=== PATIENT | male | born 1965 | race Caucasian/White ===

== ENCOUNTER 2018-09-15 02:32 | Observation (INO) | payer OTHER ==
[2018-09-15] MEDS ORDERED: Nitroglycerin 2% Ointment 1 INCH/1 GM Packet ONE (03:09)
[2018-09-15 03:43] LABS: Troponin I Less than 0.010 ng/mL (< 0.028)
[2018-09-15] MEDS ORDERED: Ondansetron PF 4 MG/2 ML Vial IVP PRN (04:05)
[2018-09-15] MEDS ORDERED: Acetaminophen 325 MG TAB PO PRN ×2 (04:05→09:55)
[2018-09-15] MEDS ORDERED: Ondansetron ODT 4 MG TAB SL PRN (04:05)
[2018-09-15 07:01] LABS: Troponin I 0.011 ng/mL (< 0.028)
[2018-09-15] MEDS ORDERED: Guaifenesin DM 100-10/5 ML UDCUP PO PRN (09:55)
[2018-09-15] MEDS ORDERED: Senokot S 8.6-50 MG TAB PO PRN (09:55)
[2018-09-15] MEDS ORDERED: Nitroglycerin 0.4 MG TAB (25 Tab Bottle) PO PRN (09:55)
[2018-09-15] MEDS ORDERED: Dextrose 50% Abboject 50 ML SYRINGE SLOW IVP PRN (09:56)
[2018-09-15] MEDS ORDERED: Dextrose 5% in Water 1,000 ML IV PRN (09:56)
[2018-09-15] MEDS ORDERED: HumaLOG 300 UNITS/3 ML VIAL SC PRN (09:56)
[2018-09-15] MEDS ORDERED: Sodium Chloride 0.9% 1,000 ML IV SCH (10:00)
[2018-09-15] MEDS ORDERED: Iopamidol 370 76% 100 ML VIAL ONE (11:00)
[2018-09-15] MEDS ORDERED: Nitroglycerin 2% Ointment 1 INCH/1 GM Packet TOP SCH (11:00)
[2018-09-15 11:13] LABS: Cardiac Risk 3.7 (Less than 4.5)
--- NOTE | 2018-09-15 14:08 | CT ---
CTA CHEST WITH 3D VOLUME RENDERING: INDICATIONS: Pleurisy. Pleuritic chest pain. FINDINGS: There is no evidence of a large, central pulmonary embolus identified within the pulmonary arteries. The thoracic aorta is nonaneurysmal. There is mild atelectasis of each lung. No effusion or pneumo thorax. There is evidence to indicate hepatic steatosis. Correlate with liver function enzymes. Th ere is no evidence of an acute osseous abnormality. There are scattered granulomatous calcifications . IMPRESSION: 1. No significant pulmonary embolus. 2. Bilateral pulmonary parenchymal atelectasis. POS: [facility]
--- NOTE | 2018-09-15 15:21 | SS ---
DATE OF ADMISSION: 09/15/2018 REASON FOR ADMISSION: Chest pain, likely pleuritic. HISTORY OF PRESENT ILLNESS: The patient gives history of having retrosternal chest pain, which was worse on deep breathing. This was also worse on lying to either side, but was comfortable lying on his back. This started around 9:50 p.m. yesterday. He had been with his family and friends watching game from 1: 30 p.m. on. The patient had consumed nearly 5 beers by then and had adequate food as well. This pain lasted for an hour or so. Finally, the patient went to [facility] from where he was transferred here. He has no complaints of palpitations, PND or orthopnea. No prior cardiac workup. No history of fever. No cough or expectoration. No flu-like illness. PAST MEDICAL AND SURGICAL HISTORY: Diabetes mellitus type 2, dyslipidemia. No prior surgeries. CURRENT MEDICATIONS: Janumet 50/500 mg extended release once daily, atorvastatin 20 mg daily, multivitamin 1 tab once daily, glucosamine tablets once daily. ALLERGIES: No known drug allergies. PERSONAL HISTORY: Smokes cigars occasionally and drinks beer on social occasions. Yesterday, he had nearly 5 of them while he was with his family. Does not abuse drugs. Lives with his . FAMILY HISTORY: Mother is living and has a history of COPD. He does not know much about his biological father. CODE STATUS: Full. is power of business attorney. REVIEW OF SYSTEMS: The following complete review of systems was negative, unless otherwise mentioned in the HPI or below: Constitutional: Weight loss or gain, ability to conduct usual activities. Skin: Rash, itching. Eyes: Double vision, pain. ENT/Mouth: Nose bleeding, neck stiffness, pain, tenderness. Cardiovascular: Palpitations, dyspnea on exertion, orthopnea. Respiratory: Shortness of breath, wheezing, cough, hemoptysis, fever or night sweats. Gastrointestinal: Poor appetite, abdominal pain, heartburn, nausea, vomiting, constipation, or diarrhea. Genitourinary: Urgency, frequency, dysuria, nocturia. Musculoskeletal: Pain, swelling. Neurologic/Psychiatric: Anxiety, depression. Allergy/Immunologic: Skin rash, bleeding tendency. PHYSICAL EXAMINATION: GENERAL: The patient is a 53-year-old male who is currently not in any acute distress and is chest pain free. VITAL SIGNS: Blood pressure 170/80, pulse 92 per minute, respiratory rate 16 per minute, temperature 98.4 degrees Fahrenheit, saturating 96% on room air. NECK: Supple. No elevated JVD. HEENT: Extraocular muscles intact. Pupils reacting to light. Oral cavity, mucous membranes are dry. No exudates or congestion. CARDIOVASCULAR: S1, S2 heard. Regular rhythm. RESPIRATORY: Air entry 1+ bilateral. No rales or rhonchi. ABDOMEN: Soft. Bowel sounds heard. No tenderness, rigidity or guarding. EXTREMITIES: No peripheral edema or calf tenderness. VASCULAR SYSTEM: Peripheral pulses 2+ bilateral. No ischemic ulcerations or gangrene. CENTRAL NERVOUS SYSTEM: No gross focal deficits noted. The patient is alert, awake, oriented well. PSYCHIATRIC: The patient's mood is euthymic. No hallucinations or delusions. LABORATORY AND X-RAY FINDINGS: CT angio chest done shows no evidence of pulmonary embolus. There is bilateral pulmonary parenchymal atelectasis. White count of 14, H and H 15 and 44, platelet count 245,000 with 77% neutrophils. D-dimer is 0.27. MCV is 85. Electrolytes stable. BUN 14, creatinine 0.7, serum glucose 197, AST 23, ALT 63, alkaline phosphatase 97, total bilirubin 0.4. Troponin x3 is negative. CK-MB 0.9, total cholesterol 143 , triglycerides 133, LDL 77. Lipase is 38. EKG done shows normal sinus rhythm at 85 beats per minute with nonspecific ST-T wave changes. CLINICAL IMPRESSION AND PLAN: The patient appears to be mildly dehydrated and we will place him on normal saline at 60 mL per hour for a total of 1 liter. He has had a CT angio chest done, which does not show any active infiltrate. His chest pain is pleuritic in nature with no sign of pericarditis clinically or on imaging with effusion. We will obtain a nuclear stress test in view of multiple risk factors. He will be on a full dose aspirin and continue his atorvastatin as before. He will be on DuoNeb q.6 hourly. We will also place him on empiric Levaquin for possible bronchitis. Viral respiratory pathogen PCR will also be obtained. He will be on Accu-Cheks a.c. and at bedtime with Humalog coverage for now. The patient likely will be discharged home later this evening if his stress test is normal and the patient needs follow up with his primary care physician, Ms. Nenita Kee in 1 week. This will be short stay summary if he goes home today. TIFFANIE
[2018-09-15 15:53] VITALS: BP 147/69; TEMP 98.4
--- NOTE | 2018-09-15 18:50 | NM ---
CARDIAC SPECT: CLINICAL HISTORY: 53-year-old male with chest pain, hypertension, diabetes, and dyslipidemia. TECHNIQUE: A myocardial perfusion scan was performed using the single isotope one day protocol with technetium-9 9m sestamibi. 9 mCi were injected intravenously for the rest exam followed by 28 mCi for the stress e xam. Exercise stress with Lexiscan was monitored and interpreted by Dr. Trent. FINDINGS: Homogeneous tracer distribution is seen in the myocardial segments on stress and rest images without fixed or reversible defects. GATED SPECT LVEF: 74%. WALL MOTION EXAM: Normal. IMPRESSION: Normal myocardial perfusion scan. POS: [facility]
[2018-09-15] MEDS ORDERED: Famotidine 20 MG TAB PO SCH (21:00)
[2018-09-15] MEDS ORDERED: Atorvastatin Calcium 20 MG TAB PO SCH (21:00)
[2018-09-16] MEDS ORDERED: Enoxaparin Sodium 40 MG/0.4 ML SYRINGE SC SCH (09:00)
[2018-09-16] MEDS ORDERED: Aspirin 325 MG TAB PO SCH (09:00)
== END 2018-09-15 18:35 | disposition home or self-care (01) ==
LOC: ERS 02:32 → 2SW 03:39
PROVIDERS: ADMIT Internal Medicine; ATTEND Internal Medicine
DX: R07.89 Other chest pain (principal); E11.9 Type 2 diabetes mellitus without complications; E78.5 Hyperlipidemia, unspecified; J98.11 Atelectasis; I10 Essential (primary) hypertension; Z79.84 Long term (current) use of oral hypoglycemic drugs; Z79.899 Other long term (current) drug therapy
CPT/HCPCS: 36415; 36416; 71275; 78452; 80061; 83690; 84484; 85379; 87633; 93005; 93017; 99406; A9500; G0378; J7620